=== PATIENT | male | born 1950 | race Caucasian/White ===

== ENCOUNTER 2020-01-05 00:22 | Day surgery (SDC) | payer BC, SELFPAY ==
[2019-12-31 14:55] VITALS: BMI 20.5
--- NOTE | 2020-01-03 14:07 | WPDANESEPP ---
Anes - Eval Pre Procedure Procedure: Operation Date: 01/05/20 09:30 Proposed Procedures p Screening Colonoscopy - Joshua Gibson MD Date/Time: 01/03/20 14:07 Pre Op Diagnosis: Neoplasm screening Patient Data Age: 69 Gender: M Height: 5 ft 10 in Weight: 65 kg Allergies Allergy/AdvReac Type Severity Reaction Status Date / Time No Known Allergies Allergy Unverified 12/31/19 14:53 Home Medications Medication Instructions Recorded Confirmed Type aspirin [Yovany Aspirin] 325 mg PO DAILY 12/31/19 12/31/19 History mqfqkcpy-zbo-NM-lycopen-lutein 1 tablet PO DAILY 12/31/19 12/31/19 History [Centrum Silver Men] rosuvastatin 40 mg PO DAILY 12/31/19 12/31/19 History ECG: ecg dtd 2012 on file: SR rate 55, no recent for review Patient hx anesthesia problems: none Family hx anesthesia problems: none PMFSH Past Medical History Medical History (Updated 01/03/20 @ 14:03 by Sally Still CRNA) Hyperlipidemia Surgical History Surgical History (Updated 01/03/20 @ 14:07 by Sally Still CRNA) H/O decompression of ulnar nerve History of tonsillectomy Hx of cataract removal with insertion of prosthetic lens Exam Day of Procedure 01/03/20 14:07
[2020-01-05 08:26] VITALS: BP 132/79; PULSE 77; RESP 14; TEMP 36.4; O2SAT 91
[2020-01-05] MEDS: LACTATED RINGERS 1,000 ML 150 ML IV CONT (08:28)
--- NOTE | 2020-01-05 08:38 | PM.HPGS ---
History of Present Illness History of Present Illness Consent: Risks, benefits, and alternatives have been discussed and questions answered. Patient agrees to proceed with procedure. Chief complaint: Neoplasm screening Narrative: Prashanth Kurtz is a 69 year old male here for screening colonoscopy. He had cologuard test that was positive PMF Past Medical History Medical History (Updated 01/05/20 @ 08:39 by Joshua Gibson MD) Hyperlipidemia Surgical History Surgical History H/O decompression of ulnar nerve History of tonsillectomy Hx of cataract removal with insertion of prosthetic lens Meds Home Medications and Allergies Home Medications Medication Instructions Recorded Confirmed Type aspirin [Yovany Aspirin] 325 mg PO DAILY 12/31/19 12/31/19 History vhxzrphy-duf-VE-lycopen-lutein 1 tablet PO DAILY 12/31/19 12/31/19 History [Centrum Silver Men] rosuvastatin 40 mg PO DAILY 12/31/19 12/31/19 History Allergies Allergy/AdvReac Type Severity Reaction Status Date / Time No Known Allergies Allergy Unverified 01/05/20 08:24 Vital Signs Vital Signs - 24 hr 01/05/20 08:26 Temperature 36.4 C Pulse Rate 77 Respiratory Rate 14 Blood Pressure 132/79 Pulse Oximetry 91 Exam Resp: Auscultation: clear to auscultation bilaterally Cardio: Rate: regular rate Rhythm: regular rhythm GI: GI Palp: Yes Soft to palpation and No Tenderness to palpation present (GI) Assessment and Plan Assessment and plan (1) Colon cancer screening: Code(s): Z12.11 - Encounter for screening for malignant neoplasm of colon Status: Acute Assessment and Plan: Colonoscopy with possible biopsy or polypectomy or cautery or injection of substances.
--- NOTE | 2020-01-05 08:42 | P.PNAN_ITS ---
Anes - Eval Final PreProcedure Day of Procedure 01/05/20 08:42 Patient weight: normal Heart: regular rate and rhythm Lungs: clear to auscultation Airway: Mallampati scale class II Neurological: alert and oriented Last oral intake: >/= 8 hours ASA classification: II Emergent: no Anesthetic plan: proceed Anesthesia type and monitoring: general GIVS and standard monitoring Informed Consent: The patient's anesthetic plan and its attendant risks and b enefits were discussed with the patient/family/POA. Questions were solicited and answers provided to the satisfaction of the patient/family/POA.
[2020-01-05 09:49] VITALS: BP 113/74; PULSE 84; RESP 26; O2SAT 95
[2020-01-05 09:59] VITALS: BP 115/69; PULSE 72; RESP 16; O2SAT 94
[2020-01-05 10:09] VITALS: BP 130/80; PULSE 72; RESP 18; O2SAT 95
== END 2020-01-05 10:20 | disposition home or self-care (01) ==
PROVIDERS: PCP Internal Medicine; Visit Provider Internal Medicine Gastroenterology
PROC: 0DJD8ZZ Inspection of Lower Intestinal Tract, Via Natural or Artificial Opening Endoscopic (ICD-10-PCS; CPT 45378; principal; 2020-01-05 09:30)
DX: Z12.11 Encounter for screening for malignant neoplasm of colon (principal); D12.3 Benign neoplasm of transverse colon; K57.30 Diverticulosis of large intestine without perforation or abscess without bleeding; E78.5 Hyperlipidemia, unspecified; Z79.82 Long term (current) use of aspirin
CPT/HCPCS: 45385; 45381; 88305; J2704; J7120